=== PATIENT | female | born 1970 | race Caucasian/White ===

== ENCOUNTER 2022-07-11 06:26 | Emergency (ER) | payer OTHER ==
[~2022-07-11] VITALS: Ht 157.5 cm; Wt 68.0 kg
[2022-07-11 06:26] VITALS: BP_SYST 178; BP_DIAS 103; BP_DIAS 104
[2022-07-11 06:28] VITALS: BP 178/103
[2022-07-11 06:44] VITALS: BP_SYST 178
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
== END 2022-07-11 07:00 | disposition home or self-care (01) ==
LOC: ER 06:26
DX: Z04.1 Encounter for examination and observation following transport accident (principal)
CPT/HCPCS: 99283